=== PATIENT | male | born 1955 | race Two or more races ===

== ENCOUNTER 2020-09-16 18:43 | Outpatient (CLI) | payer OTHER ==
[~2020-09-16 18:43] MED LIST: ADULT ASPIRIN81 MG; DICY20TA; DIOVAN320 MG; FENOFIBRATE160 MG; GLIMEPIRIDE4 MG; METOPROLOL SUC100 MG; NORVASC5 MG; PERCOCET 5/3251 TAB PO; PLAVIX75 MG; POLY119PG PO
== END 2020-09-16 19:00 | disposition home or self-care (01) ==
LOC: LAB 18:43
PROVIDERS: ATTEND Urology
DX: R97.20 Elevated prostate specific antigen [PSA] (principal)

== ENCOUNTER 2020-10-16 07:11 | Outpatient (CLI) | payer OTHER | END 2020-10-16 07:18 | disposition home or self-care (01) | LOC: SONOGRAMA 07:11 | PROVIDERS: ATTEND Urology | DX: D29.1 Benign neoplasm of prostate (principal); R97.20 Elevated prostate specific antigen [PSA] ==

== ENCOUNTER 2024-03-08 15:03 | Outpatient (CLI) | payer OTHER | END 2024-03-08 15:24 | disposition home or self-care (01) | LOC: LAB 15:03 | PROVIDERS: ATTEND Urology | DX: R97.20 Elevated prostate specific antigen [PSA] (principal) ==